=== PATIENT | male | born 1995 | race African-American/Black ===

== ENCOUNTER 2023-03-14 06:46 | Day surgery (SDC) | payer BC ==
[2023-03-14] MEDS ORDERED: CEFAZOLIN 2 GM VIAL ONE (07:19)
[2023-03-14] MEDS ORDERED: Sodium Chloride 0.9% 100 ML ONE (07:20)
[2023-03-14] MEDS ORDERED: Midazolam HCl 2 mg/2 ml Vial ONE (07:56)
[2023-03-14] MEDS ORDERED: EPINEPHrine 1 MG/ML AMP ONE (08:17)
[2023-03-14] MEDS ORDERED: Bupivacaine 0.25% HCL 30 ML VIAL ONE (08:17)
[2023-03-14] MEDS ORDERED: Propofol 500 MG/50 ML VIAL ONE (08:26)
[2023-03-14] MEDS ORDERED: fentaNYL PF 100 MCG/2 ML SYRINGE ONE (08:26)
[2023-03-14] MEDS ORDERED: Ondansetron PF 4 MG/2 ML Vial ONE (08:46)
[2023-03-14] MEDS ORDERED: Dexamethasone 20 MG/5 ML VIAL ONE (08:46)
[2023-03-14] MEDS ORDERED: PROPOFOL 200 MG/20 ML VIAL ONE (08:46)
[2023-03-14] MEDS ORDERED: Ketorolac Tromethamine 30 MG/ML VIAL ONE (08:46)
[2023-03-14] MEDS ORDERED: Lidocaine 1% PF 5 ML VIAL ONE (08:46)
== END 2023-03-14 11:25 | disposition home or self-care (01) ==
LOC: SDC 06:46
PROVIDERS: ATTEND Surgery
PROC: 0JBL0ZZ Excision of Right Upper Leg Subcutaneous Tissue and Fascia, Open Approach (ICD-10-PCS; principal; 2023-03-14)
DX: D17.23 Benign lipomatous neoplasm of skin and subcutaneous tissue of right leg (principal)
CPT/HCPCS: 88304; J0171; J1100; J1885; J2250; J2405; J2704; J3490; S0020